=== PATIENT | male | born 1955 | race Caucasian/White ===

== ENCOUNTER 2018-12-27 06:32 | Day surgery (SDC) | payer MEDICARE ==
[~2018-12-27] VITALS: Ht 170.2 cm; Wt 71.7 kg
[~2018-12-27 06:32] MED LIST: CALCNI; CYCL10 PO; DEPRESSION MED; HYDACE5325 PO; NAPR500 PO; OXYACE7.5T PO; TRAZ50 PO; ZOLP5 PO
== END 2018-12-27 08:30 | disposition home or self-care (01) ==
LOC: ORSCSDS 06:32
PROVIDERS: Internal Medicine Gastroenterology
PROC: 0DB68ZX Excision of Stomach, Via Natural or Artificial Opening Endoscopic, Diagnostic (ICD-10-PCS; principal; 2018-12-27 08:00)
DX: K29.50 Unspecified chronic gastritis without bleeding (principal); K31.819 Angiodysplasia of stomach and duodenum without bleeding; Z87.891 Personal history of nicotine dependence
CPT/HCPCS: 88305; 88312; J2405; J2704; J7120

== ENCOUNTER 2022-12-23 16:59 | Emergency (ER) | payer MEDICARE ==
[~2022-12-23] VITALS: Ht 172.7 cm; Wt 65.8 kg
[2022-12-23 18:48] VITALS: BP 132/71
== END 2022-12-23 18:47 | disposition home or self-care (01) ==
LOC: ER 16:59
DX: M25.561 Pain in right knee (principal); S70.11XA Contusion of right thigh, initial encounter; S80.11XA Contusion of right lower leg, initial encounter; R60.0 Localized edema; W18.40XA Slipping, tripping and stumbling without falling, unspecified, initial encounter; Z87.891 Personal history of nicotine dependence
CPT/HCPCS: 73562-RT; 99283-25

== ENCOUNTER → 2023-11-16 | Outpatient (CLI) | payer OTHER ==
[2023-11-16 17:57] LABS: Source, Urine Clean Catch
[2023-11-16 18:52] LABS: Appearance, Urine Clear (Clear); Bilirubin, Urine Neg (Neg); Blood, Urine Neg (Neg); Color, Urine Yellow (P-Yellow); Glucose Qualitative, Urine Neg (Neg); Ketones, Urine Neg (Neg); Leukocyte Esterase, Urine Neg (Neg); Nitrite, Urine Neg (Neg); Protein, Urine Neg (Neg); Urobilinogen, Urine NORM (Normal)
== END ==
LOC: LAB 17:55 → LAB SHORT 17:55
PROVIDERS: Registered Nurse
DX: R30.0 Dysuria (principal); R41.0 Disorientation, unspecified
CPT/HCPCS: 81003

== ENCOUNTER → 2023-12-13 | Outpatient (CLI) | payer OTHER ==
[2023-12-14 10:22] LABS: Source, Urine Clean Catch
[2023-12-14 11:48] LABS: Appearance, Urine Hazy (Clear); Bilirubin, Urine Neg (Neg); Blood, Urine Neg (Neg); Color, Urine Yellow (P-Yellow); Glucose Qualitative, Urine Neg (Neg); Ketones, Urine Neg (Neg); Leukocyte Esterase, Urine Neg (Neg); Nitrite, Urine Neg (Neg); Protein, Urine 1+ (Neg); Specific Gravity, Urine 1.025 (1.003-1.022); Urobilinogen, Urine NORM (Normal)
[2023-12-14 11:58] LABS: Amorphous Light (0-Heavy); Bacteria Not Seen /hpf; Red Blood Cells, Urine 0-2 /hpf (0-2); Squamous Epithelial Cells Few /hpf (Few); White Blood Cells, Urine 0-2 /hpf (0-5)
== END ==
LOC: LAB 16:45 → LAB SHORT 16:45
PROVIDERS: Registered Nurse
DX: R30.0 Dysuria (principal)
CPT/HCPCS: 81001